=== PATIENT | female | born 1960 | race African-American/Black ===

== ENCOUNTER 2020-03-01 13:49 | Emergency (ER) | payer MEDICAID ==
[~2020-03-01] VITALS: Ht 160 cm; Wt 122.1 kg
[2020-03-01] MEDS ORDERED: MORPHINE SULFATE 4 MG/ML, 1ML ONE ×2 (15:07→15:18)
[2020-03-01] MEDS ORDERED: ONDANSETRON 2MG/ML, 2ML ONE (15:07)
[2020-03-01] MEDS: MORPHINE SULFATE 4 MG/ML, 1ML IVPush PRN ×2 (15:10→15:30)
--- NOTE | 2020-03-01 15:14 | NUR ---
VERBAL ORDER FOR 4 ZOFRAN, 4 MORPHINE, LITER BOLUS OF NS RECIEVED FROM LEXI JOHNSON
--- NOTE | 2020-03-01 15:26 | NUR ---
LAST ORAL INTAKE 2 PM TODAY.
[2020-03-01] MEDS ORDERED: SODIUM CHLORIDE 0.9% 1,000ML IVBOLUS ONE (15:30)
[2020-03-01] MEDS ORDERED: ONDANSETRON 2MG/ML, 2ML IVPush ONE (15:30)
[2020-03-01] MEDS ORDERED: SODIUM CHLORIDE FLUSH 10ML SYR IVF ONE (15:30)
[2020-03-01 15:52] LABS: MEAN CORPUSCULAR HEMOGLOBIN 25.8 pg (27.0-34.8); MEAN CORPUSCULAR HGB CONC 32.7 g/dL (32.4-35.8); MEAN PLATELET VOLUME 7.4 fL (7.4-10.4); PLATELET COUNT 285 x10^3/uL (130-400); RED CELL DISTRIBUTION WIDTH 16.1 % (9.6-15.2)
[2020-03-01 16:04] LABS: ALANINE AMINOTRANSFERASE 20 U/L (12-78); ALBUMIN 3.5 g/dL (3.4-5.0); ANION GAP 8 mmol/L (5-15); CALCIUM 8.4 mg/dL (8.5-10.1); CHLORIDE 110 mmol/L (98-107); CREATININE 0.93 mg/dL (0.55-1.02)
[2020-03-01 16:06] LABS: ALKALINE PHOSPHATASE 97 U/L (45-117); BILIRUBIN,TOTAL 0.2 mg/dL (0.2-1.0); TOTAL PROTEIN 7.7 g/dL (6.4-8.2)
[2020-03-01] MEDS ORDERED: HYDROmorphone 1 MG/ML, 1ML INJ ONE ×2 (16:08→17:55)
[2020-03-01] MEDS: HYDROmorphone 2 MG/ML, 1ML IVPush PRN ×2 (16:12→18:13)
[2020-03-01] MEDS ORDERED: OMNIPAQUE 350 MG/ML, 100ML BOTTLE ONE (16:30)
--- NOTE | 2020-03-01 16:32 | NUR ---
ASSUMED CARE. PT TO CT.
[2020-03-01 16:45] LABS: BASOPHILS # (AUTO) 0.07 x10^3/uL (0-0.1); BASOPHILS % (AUTO) 1 % (0-1); EOSINOPHILS # (AUTO) 0.15 x10^3/uL (0-0.4); EOSINOPHILS % (AUTO) 1 % (1-7); LYMPHOCYTES # (AUTO) 6.25 x10^3/uL (1-3.4); LYMPHOCYTES % (AUTO) 43 % (22-44); MD SCAN; MONOCYTES # (AUTO) 0.74 x10^3/uL (0.2-0.8); MONOCYTES % (AUTO) 5 % (2-9); NEUTROPHILS # (AUTO) 7.43 x10^3/uL (1.8-6.8); NEUTROPHILS % (AUTO) 51 % (42-75)
[2020-03-01 17:40] VITALS: BP 147/56
--- NOTE | 2020-03-01 17:41 | NUR ---
PT CONTINUES TO HAVE ABDOMINAL PAIN, RUBBING ABDOMINAL HERNIA. ALSO NAUSEATED. TO BE REMEDICATED FOR PAIN AND REQUEST FOR NAUSEA MED
[2020-03-01] MEDS ORDERED: METOCLOPRAMIDE 5 MG/ML, 2ML ONE (17:55)
[2020-03-01] MEDS ORDERED: METOCLOPRAMIDE 5 MG/ML, 2ML IVPush ONE (18:00)
--- NOTE | 2020-03-01 18:42 | NUR ---
PAIN IMPROVED, STILL NAUSEATED. GIVEN DISCHARGE INCLUDING PRESCRIPTION FOR ZOFRAN AND DISCHARGE HAS SUGGESTIONS ON BLAND DIET. PT REFERRED TO GI DOCTOR. PT CALLING DAUGHTER FOR RIDE. AMBULATED TO DISCHARGE WINDOW, STEADY GAIT.
== END 2020-03-01 18:45 | disposition home or self-care (01) ==
LOC: ED 15:14
DX: K29.00 Acute gastritis without bleeding (principal); K44.9 Diaphragmatic hernia without obstruction or gangrene; R10.13 Epigastric pain; E11.9 Type 2 diabetes mellitus without complications; R06.02 Shortness of breath; K59.00 Constipation, unspecified; R94.31 Abnormal electrocardiogram [ECG] [EKG]
CPT/HCPCS: 36415; 74177; 80053; 83690; 85025; 93005; 96361; 96374; 96375; 96376; 99285; J1170; J2270; J2405; J2765; J7030; Q9967

== ENCOUNTER 2020-06-27 09:56 | Emergency (ER) | payer MEDICAID ==
[~2020-06-27] VITALS: Ht 162.6 cm; Wt 119.4 kg
[2020-06-27 10:19] VITALS: BP 162/77
--- NOTE | 2020-06-27 10:26 | NUR ---
FOR [facility] COULD NOT READ ANYTING ON THE CHART, R EYE/L EYE AND BOTH EYES OPEN
[2020-06-27] MEDS ORDERED: FLUORESCEIN OPHTHALMIC 1 MG STRIP ONE (10:38)
[2020-06-27] MEDS ORDERED: PROPARACAINE OPHTH 0.5%, 15ML ONE (10:38)
--- NOTE | 2020-06-27 10:50 | NUR ---
LT EYE PAIN FOR 1 WEEK , BLURRY VISION . REDNESS AND DRAINAGE PROVIDER TO BEDSIDE-DX OF CONJUCTIVITIS. PLAN TO D/C WITH EYEDROPS/OPTHO
[2020-06-27] MEDS ORDERED: HYDROcodone/APAP 5/325 TABLET ONE (10:54)
[2020-06-27] MEDS ORDERED: HYDROcodone/APAP 5/325 TABLET PO ONE (11:00)
--- NOTE | 2020-06-27 11:15 | NUR ---
PAIN IMPROVED TO 6/10 PROVIDED WITH EYE PATCH WELL DISPOSABLE EYE PADS REVIEWED MEDICATION PLAN DISCAHRGED HOME IN COMPANY OF FAMILY
== END 2020-06-27 11:19 | disposition home or self-care (01) ==
LOC: ED 10:30
DX: H10.022 Other mucopurulent conjunctivitis, left eye (principal); H54.62 Unqualified visual loss, left eye, normal vision right eye; H53.142 Visual discomfort, left eye; E11.9 Type 2 diabetes mellitus without complications
CPT/HCPCS: 99283

== ENCOUNTER 2020-07-29 13:56 | Emergency (ER) | payer MEDICAID ==
[~2020-07-29] VITALS: Ht 162.6 cm; Wt 117.8 kg
--- NOTE | 2020-07-29 14:03 | NUR ---
UA CUP GIVEN
--- NOTE | 2020-07-29 14:18 | NUR ---
PT CAME IN CO OF DIFFUSE ABD PAIN. STATES "ITS RIGHT ON MY NAVEL AND IT DE LEON WHEN I URINATE" X 1 WEEK. PT PROVIDED UA SAMPLE. PT HAS HAD HER GALLBLADDER REMOVED BUT HAS HER APPENDIX. PT RESTING IN [facility]. AWAITING PROVIDER.
--- NOTE | 2020-07-29 15:24 | NUR ---
URINE SPECIMEN COLLECTED AND SENT, AWAIT FURTHER ORDERS, PT SEATED ON STRETCHER, APPEARS NAD
[2020-07-29 15:49] LABS: MICROSCOPIC INDICATED
[2020-07-29] MEDS ORDERED: HYDROmorphone 2 MG/ML, 1ML IVPush PRN (16:00)
[2020-07-29] MEDS ORDERED: SODIUM CHLORIDE FLUSH 10ML SYR IVF ONE (16:00)
[2020-07-29] MEDS ORDERED: ONDANSETRON 2MG/ML, 2ML IVPush ONE (16:00)
[2020-07-29 16:02] LABS: BASOPHILS % (AUTO) 1 % (0-1); EOSINOPHILS % (AUTO) 1 % (1-7); LYMPHOCYTES % (AUTO) 35 % (22-44); MEAN CORPUSCULAR HEMOGLOBIN 25.2 pg (27.0-34.8); MEAN PLATELET VOLUME 7.4 fL (7.4-10.4); MONOCYTES % (AUTO) 6 % (2-9); NEUTROPHILS % (AUTO) 57 % (42-75); PLATELET COUNT 271 x10^3/uL (130-400); RED BLOOD COUNT 4.89 x10^6/uL (3.82-5.3); RED CELL DISTRIBUTION WIDTH 15.4 % (9.6-15.2)
[2020-07-29] MEDS ORDERED: HYDROmorphone 1 MG/ML, 1ML INJ ONE (16:07)
[2020-07-29] MEDS ORDERED: ONDANSETRON 2MG/ML, 2ML ONE (16:07)
[2020-07-29 16:11] LABS: ALBUMIN 3.3 g/dL (3.4-5.0); ANION GAP 7 mmol/L (5-15); CALCIUM 8.3 mg/dL (8.5-10.1); CHLORIDE 114 mmol/L (98-107)
[2020-07-29 16:14] LABS: ALANINE AMINOTRANSFERASE 11 U/L (12-78); ALKALINE PHOSPHATASE 83 U/L (45-117); BILIRUBIN,TOTAL 0.4 mg/dL (0.2-1.0); CREATININE 0.87 mg/dL (0.55-1.02); TOTAL PROTEIN 7.2 g/dL (6.4-8.2)
[2020-07-29 16:49] LABS: MD SCAN
--- NOTE | 2020-07-29 17:13 | NUR ---
PT TO CT AT THIS TIME
--- NOTE | 2020-07-29 17:19 | NUR ---
IV INFILTRATION; PT NEEDS NEW IV
--- NOTE | 2020-07-29 18:46 | NUR ---
TASK RN: [id number] PLACED TO LEFT FOREARM
[2020-07-29] MEDS ORDERED: OMNIPAQUE 350 MG/ML, 100ML BOTTLE ONE (18:55)
[2020-07-29 20:17] VITALS: BP 122/66
== END 2020-07-29 21:16 | disposition home or self-care (01) ==
LOC: ED 14:17
DX: R10.84 Generalized abdominal pain (principal); R11.2 Nausea with vomiting, unspecified; M54.9 Dorsalgia, unspecified; E11.9 Type 2 diabetes mellitus without complications; Z90.49 Acquired absence of other specified parts of digestive tract
CPT/HCPCS: 36415; 74177; 80053; 81001; 83690; 85025; 87086; 96374; 96375; 99285; J1170; J2405; Q9967